=== PATIENT | female | born 2000 | race Caucasian/White ===

== ENCOUNTER 2023-09-26 11:58 | Emergency (ER) | payer MEDICAID ==
[~2023-09-26] VITALS: Ht 165.1 cm; Wt 70.5 kg
[2023-09-26 12:09] VITALS: TEMP 98.1
[2023-09-26] MEDS ORDERED: NS 1,000 ML IV ONE (12:45)
[2023-09-26] MEDS ORDERED: Iohexol 350 - 100 ML VIAL IV ONE (12:51)
[2023-09-26] MEDS ORDERED: NS 100 ML IV SCH (12:56)
[2023-09-26 13:03] LABS: BASO % 0.3 % (0.0-2.0); EOS # 0.1 K/mm3 (0.0-0.7); EOS % 0.9 % (0.0-4.0); GRAN # 9.9 K/mm3 (1.4-6.5); GRAN % 79.5 % (42.2-75.2); HEMOGLOBIN 10.6 g/dl (12.0-15.0); LYMPH # 1.6 K/mm3 (1.2-3.4); LYMPH % 12.7 % (20.0-51.0); MEAN CELL VOLUME 89 fl (80.0-95.0); MEAN CORPUSCULAR HEMOGLOBIN 29 pg (26-32); MEAN CORPUSCULAR HGB CONC 33 g/dl (33.0-37.0); MEAN PLATELET VOLUME 11.4 fl (7.4-10.4); MONO # 0.7 K/mm3 (0.1-0.6); MONO % 5.3 % (1.7-9.3); PLATELET COUNT 177 K/mm3 (130-400); RED BLOOD COUNT 3.65 M/mm3 (4.10-5.30); REDCELL DISTRIBUTION WIDTH-CV 12.4 % (11.5-14.5)
[2023-09-26 13:05] LABS: HEMATOCRIT 32.3 % (35.0-45.0)
[2023-09-26 13:15] LABS: ALANINE AMINOTRANSFERASE 21 U/L (0-55); ALKALINE PHOSPHATASE 127 U/L (40-150); ANION GAP 11 mmol/L (7-16); AST,SGOT 17 U/L (5-34); BILIRUBIN,TOTAL 0.5 mg/dL (0.2-1.2); BLOOD UREA NITROGEN 8 mg/dL (7-19); CALCIUM 8.7 mg/dL (8.4-10.2); CARBON DIOXIDE 19 mmol/L (22-29); CHLORIDE 108 mmol/L (98-107); CREATININE, serum 0.62 mg/dL (0.57-1.11); GLUCOSE 113 mg/dL (70-99); POTASSIUM 3.7 mmol/L (3.5-4.5); SODIUM 138 mmol/L (136-145); TOTAL PROTEIN 6.2 gm/dL (6.2-8.1)
[2023-09-26 13:22] LABS: TROPONIN-I < 0.010 ng/mL (0.00-0.033)
--- NOTE | 2023-09-26 14:09 | NUR ---
1330 PATIENT BEING SEEN IN ED FOR CHEST PAIN. OB RN BEDSIDE TO PERFORM NST DUE TO PATIENT BEING 28 WEEKS . PT DENIES ANY LOF, VB, DFM, STRONG/REGULAR CTX, OR ANY OTHER OB RELATED COMPLAINTS. RN DISCUSSES NST PROCEDURE WITH PT AND PT VERBALIZES UNDERSTANDING AND HAS NO QUESTIONS AT THIS TIME.
[2023-09-26 15:17] VITALS: BP 107/64; PULSE 99
== END 2023-09-26 15:17 | disposition home or self-care (01) ==
LOC: COL.ER 11:58
PROVIDERS: Personal Emergency Response Attendant
DX: O99.891 Other specified diseases and conditions complicating pregnancy (principal); R07.9 Chest pain, unspecified; R00.0 Tachycardia, unspecified; Z3A.28 28 weeks gestation of pregnancy
CPT/HCPCS: J7030; Q9967